=== PATIENT | female | born 1950 | race Caucasian/White ===

== ENCOUNTER 2017-05-02 07:30 | Day surgery (SDC) | payer OTHER, MEDICARE ==
[2017-05-02] MEDS ORDERED: PROPOFOL 20 ML ONE ×2 (08:00)
[2017-05-02] MEDS ORDERED: LIDOCAINE HCL/PF 2% SDV 5ML VIAL ONE (08:00)
[2017-05-02 08:01] VITALS: BMI 24.3
[2017-05-02] MEDS ORDERED: ONDANSETRON 4 MG/2 ML VIAL ONE (08:52)
[2017-05-02 09:13] VITALS: TEMP 97.8
[2017-05-02 10:10] VITALS: BP 108/65; PULSE 70
--- NOTE | 2017-05-03 12:36 | PATH ---
Surgical Pathology Report Patient Name: VADIM GARCIAS [facility] Rec. #: [id number] /Age/Gender: 1950 (Age: 66) / F Account: [id number] Location: [facility]-ENDOSCOPY Taken: 05/02/2017 Received: 05/02/2017 Reported: 05/03/2017 Physicians: Padmini Peterson M.D. Specimen(s) Received A: BX DESCENDING COLON POLYP B: BX RIGHT COLON POLYP C: BX ILEOCECAL VALVE D: SIGMOID POLYP E: RECTAL POLYP Clinical History Adenoma surveillance, family history of colon cancer Colon polyps, diverticulosis Final Diagnosis A. COLON, DESCENDING, BIOPSY: HYPERPLASTIC POLYP WITH AREA SUGGESTIVE OF SESSILE SERRATED POLYP. B. COLON, RIGHT, BIOPSY: TUBULAR ADENOMA. C. COLON, ILEOCECAL VALVE, BIOPSY: COLONIC MUCOSA WITH NO PATHOLOGIC CHANGES. NO ACTIVE COLITIS, ARCHITECTURAL DISTORTION, GRANULOMATA, OR DYSPLASIA IDENTIFIED. NO MICROSCOPIC COLITIS IDENTIFIED (NO LYMPHOCYTIC OR COLLAGENOUS COLITIS IDENTIFIED). D. COLON, SIGMOID, POLYPECTOMY: SESSILE SERRATED POLYP E. COLON, RECTUM, BIOPSY: TUBULAR ADENOMA, AND HYPERPLASTIC POLYPS WITH AREA SUGGESTIVE OF SESSILE SERRATED POLYP. Comment: Sessile serrated polyps are not dysplastic (adenomatous). They share morphologic features with hyperplastic polyps and, in the past, have been referred to as such. However, recent studies indicate that they harbor BRAF mutations and may represent neoplastic precursors to a subset of sporadic, microsatellite unstable colon cancers. They are generally treated and followed similar to colonic adenomas. PHI [facility] and [facility] 2010, 139(5):2326-0082. Electronically Signed Geraldo Madison M.D. Gross Description A. Received in formalin, labeled "biopsy descending colon polyp" are 6 mike, irregular portions of soft tissue ranging from 0.1-0.3 cm. in greatest dimension. The specimens are submitted in toto in one cassette. B. Received in formalin, labeled "biopsy right colon polyp" are 5 mike, irregular portions of soft tissue ranging from 0.1-0.3 cm. in greatest dimension. The specimens are submitted in toto in one cassette. C. Received in formalin, labeled "biopsy ileocecal valve" are 4 mike, irregular portions of soft tissue ranging from 0.1-0.2 cm. in greatest dimension. The specimens are submitted in toto in one cassette. D. Received in formalin, labeled "sigmoid polyp" is a brown, polypoid portion of soft tissue measuring 0.5 cm. in greatest dimension. The specimen is submitted in toto in one cassette. E. Received in formalin, labeled "rectal polyps" are 6 mike, irregular portions of soft tissue ranging from 0.1-0.4 cm. in greatest dimension. The specimens are submitted in toto in one cassette. 05/02/2017 [facility]05/02/2017
== END 2017-05-02 10:10 | disposition home or self-care (01) ==
LOC: JASU-ENDO 07:30
PROVIDERS: ATTEND Internal Medicine Gastroenterology
PROC: 0DBN8ZX Excision of Sigmoid Colon, Via Natural or Artificial Opening Endoscopic, Diagnostic (ICD-10-PCS; 2017-05-02)
PROC: 0DBP8ZX Excision of Rectum, Via Natural or Artificial Opening Endoscopic, Diagnostic (ICD-10-PCS; 2017-05-02)
PROC: 0DBC8ZX Excision of Ileocecal Valve, Via Natural or Artificial Opening Endoscopic, Diagnostic (ICD-10-PCS; 2017-05-02)
PROC: 0DBM8ZX Excision of Descending Colon, Via Natural or Artificial Opening Endoscopic, Diagnostic (ICD-10-PCS; 2017-05-02)
PROC: 0DBK8ZX Excision of Ascending Colon, Via Natural or Artificial Opening Endoscopic, Diagnostic (ICD-10-PCS; principal; 2017-05-02 08:00)
DX: Z51.11 Encounter for antineoplastic chemotherapy (principal); Z86.010 Personal history of colon polyps; Z80.0 Family history of malignant neoplasm of digestive organs; D12.4 Benign neoplasm of descending colon; D12.2 Benign neoplasm of ascending colon; K63.5 Polyp of colon; D12.5 Benign neoplasm of sigmoid colon; K62.1 Rectal polyp; K57.30 Diverticulosis of large intestine without perforation or abscess without bleeding
CPT/HCPCS: 88305-TC

== ENCOUNTER 2021-03-18 05:19 | Day surgery (SDC) | payer OTHER, MEDICARE ==
[2021-03-17 16:03] VITALS: BMI 26.6
[2021-03-18 11:49] VITALS: TEMP 97.6
[2021-03-18 12:54] VITALS: BP 133/93; PULSE 75
== END 2021-03-18 12:30 | disposition home or self-care (01) ==
LOC: JASU-ENDO 05:19
PROVIDERS: ATTEND Internal Medicine Gastroenterology
PROC: 0DBL8ZX Excision of Transverse Colon, Via Natural or Artificial Opening Endoscopic, Diagnostic (ICD-10-PCS; principal; 2021-03-18 10:00)
DX: Z12.11 Encounter for screening for malignant neoplasm of colon (principal); Z86.010 Personal history of colon polyps; Z80.0 Family history of malignant neoplasm of digestive organs; D12.3 Benign neoplasm of transverse colon

== ENCOUNTER 2022-03-19 04:30 | Day surgery (SDC) | payer OTHER, MEDICARE ==
[2022-03-17 09:51] VITALS: BMI 31.9
[2022-03-19] MEDS ORDERED: MIDAZOLAM HCL 2 MG/2 ML SINGLE DOSE VIAL ONE (09:17)
[2022-03-19 10:13] VITALS: TEMP 98
[2022-03-19 11:28] VITALS: BP 144/91; PULSE 73
== END 2022-03-19 11:52 | disposition home or self-care (01) ==
LOC: JASU-ENDO 04:30
PROVIDERS: ATTEND Internal Medicine Gastroenterology
PROC: 0DBL8ZX Excision of Transverse Colon, Via Natural or Artificial Opening Endoscopic, Diagnostic (ICD-10-PCS; 2022-03-19)
PROC: 0DBP8ZX Excision of Rectum, Via Natural or Artificial Opening Endoscopic, Diagnostic (ICD-10-PCS; 2022-03-19)
PROC: 0DB98ZX Excision of Duodenum, Via Natural or Artificial Opening Endoscopic, Diagnostic (ICD-10-PCS; 2022-03-19)
PROC: 0DB28ZX Excision of Middle Esophagus, Via Natural or Artificial Opening Endoscopic, Diagnostic (ICD-10-PCS; 2022-03-19)
PROC: 0DB58ZX Excision of Esophagus, Via Natural or Artificial Opening Endoscopic, Diagnostic (ICD-10-PCS; 2022-03-19)
PROC: 0DBN8ZX Excision of Sigmoid Colon, Via Natural or Artificial Opening Endoscopic, Diagnostic (ICD-10-PCS; principal; 2022-03-19 10:00)
DX: Z12.11 Encounter for screening for malignant neoplasm of colon (principal); K62.1 Rectal polyp; D12.5 Benign neoplasm of sigmoid colon; D12.3 Benign neoplasm of transverse colon; K57.30 Diverticulosis of large intestine without perforation or abscess without bleeding; K64.8 Other hemorrhoids; K22.89 Other specified disease of esophagus; K44.0 Diaphragmatic hernia with obstruction, without gangrene; K21.00 Gastro-esophageal reflux disease with esophagitis, without bleeding; K44.9 Diaphragmatic hernia without obstruction or gangrene; K29.50 Unspecified chronic gastritis without bleeding; G47.33 Obstructive sleep apnea (adult) (pediatric); Z86.010 Personal history of colon polyps
CPT/HCPCS: 88305-TC; 88342-TC